=== PATIENT | male | born 1935 ===

== ENCOUNTER → 2018-04-08 | Outpatient (CLI) | payer MEDICARE ==
[2016-01-19 11:58] VITALS: BMI 26.7
[~2018-04-08] MED LIST: AMLO-99 PO; AMOX-559 PO; ASPI81TA94 PO; AZIT-1 PO; CHLOR25 PO; FISH1CAP15 PO; FLU45SYR17 IM; FLU45SYR25 IM ONLY; HYDR12.561 PO; LEVO25TA61 PO; LEVO50TA86 PO; LOSA100T67 PO; MONT10TA PO; MULT-885 PO; MULT1TAB64 PO; OMEP-125 PO; OMEP-137 PO; PNEU0.5D3 IM; PRAV10TA46 PO; PRAV40TA78 PO; PROB500T31 PO; TAMS0.4C70 PO
== END ==
LOC: LAB 07:27
PROVIDERS: ATTEND Internal Medicine
DX: E78.00 Pure hypercholesterolemia, unspecified (principal); I10 Essential (primary) hypertension; R73.09 Other abnormal glucose
CPT/HCPCS: 36415; 82040; 82247; 82310; 82374; 82435; 82465; 82565; 82947; 83036; 83718; 84075; 84132; 84155; 84295; 84450; 84460; 84478; 84520